=== PATIENT | female | born 1990 | race American Indian/Alaskan Native ===

== ENCOUNTER 2024-09-22 09:43 | Observation (INO) | payer MEDICAID, SELFPAY ==
[2024-09-22 09:51] VITALS: BMI 49.8
[2024-09-22 09:56] VITALS: BP 137/80; PULSE 94
[2024-09-22 10:20] VITALS: BP 137/80; PULSE 94; RESP 17; RESP 97; TEMP 36.7
== END 2024-09-22 10:57 | disposition home or self-care (01) ==
PROVIDERS: Admitting Provider Obstetrics & Gynecology; Visit Provider Obstetrics & Gynecology
DX: Z34.83 Encounter for supervision of other normal pregnancy, third trimester (principal); Z3A.33 33 weeks gestation of pregnancy
CPT/HCPCS: 59025; 59899

== ENCOUNTER 2024-10-11 09:08 | Outpatient (RCR) | payer MEDICAID, SELFPAY ==
--- NOTE | 2024-10-11 09:32 | XR_ITS ---
Examination: Biophysical profile, ultrasound Date and time of exam: October 11, 2024 0955 hours INDICATIONS: Diagnosis intrahepatic cholestasis of Technique: Multiple transabdominal sonographic images of the pelvis abdomen obtained. Attention is directed to the breathing movement, gross body movement, amniotic fluid volume and tone. Findings: Amniotic fluid index 15.1 cm Total biophysical profile is 8 of 8. breathing movement is 2. Gross body movement is 2. tone is 2. Qualitative amniotic fluid volume is 2 Impression: Biophysical profile is 8 of 8.
[2024-10-11 11:07] VITALS: BP 133/70; PULSE 99; RESP 17
== END 2024-10-11 23:59 | disposition home or self-care (01) ==
LOC: S4S1 09:08
PROVIDERS: PCP Family Medicine; Referring Provider Obstetrics & Gynecology; Visit Provider Obstetrics & Gynecology
DX: O26.643 Intrahepatic cholestasis of pregnancy, third trimester (principal); K83.1 Obstruction of bile duct; Z3A.36 36 weeks gestation of pregnancy
CPT/HCPCS: 59025; 76819

== ENCOUNTER 2024-10-18 12:48 | Observation (INO) | payer MEDICAID, SELFPAY ==
[2024-10-18 13:07] VITALS: BP 133/60; PULSE 96; RESP 18; RESP 98; TEMP 36.9; BMI 49.7
[2024-10-18 13:15] VITALS: BP 133/60; PULSE 96
[2024-10-18 14:27] LABS: Collection Type, Urine Clean Catch
[2024-10-18 14:48] LABS: Bilirubin,Urine Negative (Negative); Blood,Urine 3+ (Negative); Clarity,Urine Clear (Clear/Hazy); Color,Urine Colorless (Lt Yel-Yel); Glucose, Urine Negative (Negative); Ketones,Urine Negative (Negative); Leukocyte Esterase,Urine Negative (Negative); Nitrite,Urine Negative (Negative); Protein,Urine Trace (Neg - Trace); RBC,Urine 63 /hpf (0-3); Specific Gravity,Urine 1.006 (1.001-1.035); Squamous Epithelial Cell,Urine 1 /hpf (0-5); Urobilinogen,Urine Negative mg/dL (0.0-1.0); WBC,Urine 5 /hpf (0-5)
[2024-10-23 17:53] LABS: Chenodeoxycholic Acid* 1.2 umol/L (< OR = 3.9); Cholic Acid* 0.7 umol/L (< OR = 2.8); Deoxycholic Acid* 0.7 umol/L (< OR = 2.3)
[2024-10-25 06:37] LABS: Total Bile Acids 2.7 umol/L (< OR = 8.3)
== END 2024-10-18 15:15 | disposition home or self-care (01) ==
PROVIDERS: Admitting Provider Obstetrics & Gynecology; Visit Provider Obstetrics & Gynecology
DX: Z34.83 Encounter for supervision of other normal pregnancy, third trimester (principal); Z3A.37 37 weeks gestation of pregnancy
CPT/HCPCS: 36415; 59025; 59899; 81001; 83789

== ENCOUNTER 2024-10-28 08:31 | Outpatient (RCR) | payer MEDICAID, SELFPAY ==
--- NOTE | 2024-09-13 08:38 | XR_ITS ---
Examination: Biophysical profile, ultrasound Date and time of exam: September 13, 2024 0845 hours INDICATIONS: Cholestasis of pelvic pressure today Technique: Multiple transabdominal sonographic images of the pelvis abdomen obtained. Attention is directed to the breathing movement, gross body movement, amniotic fluid volume and tone. Findings: Amniotic fluid index 12.3 cm Total biophysical profile is 8 of 8. breathing movement is 2. Gross body movement is 2. tone is 2. Qualitative amniotic fluid volume is 2 Impression: Biophysical profile is 8 of 8.
[2024-09-13 09:30] VITALS: BP 126/63; PULSE 107; RESP 18; TEMP 36.7
--- NOTE | 2024-09-16 09:02 | XR_ITS ---
Examination: Biophysical profile, ultrasound Date and time of exam: September 16, 2024 0909 hours INDICATIONS: Diagnosis cholestasis of Technique: Multiple transabdominal sonographic images of the pelvis abdomen obtained. Attention is directed to the breathing movement, gross body movement, amniotic fluid volume and tone. Findings: Amniotic fluid index 12.1 cm Total biophysical profile is 8 of 8. breathing movement is 2. Gross body movement is 2. tone is 2. Qualitative amniotic fluid volume is 2 Impression: Biophysical profile is 8 of 8.
[2024-09-16 09:59] VITALS: BP 129/70; PULSE 98; RESP 16; TEMP 36.8
--- NOTE | 2024-09-20 09:25 | XR_ITS ---
Examination: Biophysical profile, ultrasound Date and time of exam: September 20, 2024 0945 hours INDICATIONS: Diagnosis intrahepatic cholestasis of , pelvic pressure 8 days Technique: Multiple transabdominal sonographic images of the pelvis abdomen obtained. Attention is directed to the breathing movement, gross body movement, amniotic fluid volume and tone. Findings: Amniotic fluid index 13.8 cm Total biophysical profile is 8 of 8. breathing movement is 2. Gross body movement is 2. tone is 2. Qualitative amniotic fluid volume is 2 Impression: Biophysical profile is 8 of 8.
[2024-09-20 10:44] VITALS: BP 115/55; PULSE 99; RESP 18; TEMP 36.9
--- NOTE | 2024-09-23 09:07 | XR_ITS ---
Examination: Biophysical profile, ultrasound Date and time of exam: September 23, 2024 1005 hours INDICATIONS: Diagnosis intrahepatic cholestasis of Technique: Multiple transabdominal sonographic images of the pelvis abdomen obtained. Attention is directed to the breathing movement, gross body movement, amniotic fluid volume and tone. Findings: Amniotic fluid index 12.1 cm Total biophysical profile is 8 of 8. breathing movement is 2. Gross body movement is 2. tone is 2. Qualitative amniotic fluid volume is 2 Impression: Biophysical profile is 8 of 8.
[2024-09-23 10:39] VITALS: BP 105/55; PULSE 93; RESP 18; TEMP 36.7
--- NOTE | 2024-09-27 09:11 | XR_ITS ---
Examination: Biophysical profile, ultrasound Date and time of exam: September 27, 2024 0913 hours INDICATIONS: Diagnosis cholestasis of Technique: Multiple transabdominal sonographic images of the pelvis abdomen obtained. Attention is directed to the breathing movement, gross body movement, amniotic fluid volume and tone. Findings: Amniotic fluid index 13.2 cm Total biophysical profile is 8 of 8. breathing movement is 2. Gross body movement is 2. tone is 2. Qualitative amniotic fluid volume is 2 Impression: Biophysical profile is 8 of 8.
[2024-09-27 10:18] VITALS: BP 116/58; PULSE 96; RESP 18; TEMP 37.1
--- NOTE | 2024-09-30 09:05 | XR_ITS ---
Examination: Biophysical profile, ultrasound Date and time of exam: September 30, 2024 0912 hours INDICATIONS: Diagnosis intrahepatic cholestasis of Technique: Multiple transabdominal sonographic images of the pelvis abdomen obtained. Attention is directed to the breathing movement, gross body movement, amniotic fluid volume and tone. Findings: Amniotic fluid index 16.7 cm Total biophysical profile is 8 of 8. breathing movement is 2. Gross body movement is 2. tone is 2. Qualitative amniotic fluid volume is 2 Impression: Biophysical profile is 8 of 8.
[2024-09-30 10:01] VITALS: BP 122/78; PULSE 96; RESP 16; TEMP 36.8
--- NOTE | 2024-10-04 09:06 | XR_ITS ---
Examination: Biophysical profile, ultrasound Date and time of exam: October 04, 2024 0916 hours INDICATIONS: Diagnosis intrahepatic cholestasis of Technique: Multiple transabdominal sonographic images of the pelvis abdomen obtained. Attention is directed to the breathing movement, gross body movement, amniotic fluid volume and tone. Findings: Amniotic fluid index 14.8 cm Total biophysical profile is 8 of 8. breathing movement is 2. Gross body movement is 2. tone is 2. Qualitative amniotic fluid volume is 2 Impression: Biophysical profile is 8 of 8.
--- NOTE | 2024-10-07 11:35 | XR_ITS ---
Examination: Biophysical profile, ultrasound Date and time of exam: October 07, 2024 1204 hours INDICATIONS: Diagnosis intrahepatic cholestasis of Technique: Multiple transabdominal sonographic images of the pelvis abdomen obtained. Attention is directed to the breathing movement, gross body movement, amniotic fluid volume and tone. Findings: Amniotic fluid index 14.1 cm Total biophysical profile is 8 of 8. breathing movement is 2. Gross body movement is 2. tone is 2. Qualitative amniotic fluid volume is 2 Impression: Biophysical profile is 8 of 8.
[2024-10-07 13:20] VITALS: BP 139/82; PULSE 99; RESP 18; RESP 99; TEMP 36.8
[2024-10-07 14:22] LABS: Basophils % (Auto) 0 % (0-2.5); Eosinophils # (Auto) 0.2 Thou/mm3 (0.0-0.5); Eosinophils % (Auto) 2 % (0-10); Hematocrit 29.2 % (36.0-46.0); Hemoglobin 9.1 g/dL (12.0-16.0); Immature Granulocytes % (Auto) 1 % (0-0); Immature Granulocytes Auto 0.13 Thou/mm3 (0.00-0.00); Lymphocytes % (Auto) 19 % (10-50); Mean Corpuscular HGB Conc 31.2 g/dl (31.0-37.0); Mean Corpuscular Hemoglobin 22.7 pg (25.0-35.0); Mean Corpuscular Volume 73 fL (80-100); Monocytes # (Auto) 0.7 Thou/mm3 (0.0-0.8); Monocytes % (Auto) 7 % (0-12); Neutrophils # (Auto) 7.9 Thou/mm3 (1.8-7.7); Neutrophils % (Auto) 72 % (37-80); Nucleated Red Blood Cell % 0 /100 WBC (0); Platelet Count 404 Thou/mm3 (140-440); RDW Standard Deviation 44.4 fL (36.4-46.3); Red Blood Count 4.01 Miln/mm3 (4.00-5.20); White Blood Count 10.9 Thou/mm3 (3.6-11.0)
[2024-10-07 14:33] LABS: Collection Type, Urine Clean Catch
[2024-10-07 14:42] LABS: Partial Thromboplastin Time 27.2 Seconds (22.0-36.0); Prothrombin Time 10.9 Seconds (9.0-12.2)
[2024-10-07 14:44] LABS: Bacteria,Urine Rare; Bilirubin,Urine Negative (Negative); Blood,Urine Negative (Negative); Clarity,Urine Clear (Clear/Hazy); Color,Urine Lt-Yellow (Lt Yel-Yel); Glucose, Urine Negative (Negative); Ketones,Urine Negative (Negative); Leukocyte Esterase,Urine Negative (Negative); Nitrite,Urine Negative (Negative); PH,Urine 6.5 (5.0-7.0); Protein,Urine Negative (Neg - Trace); RBC,Urine 1 /hpf (0-3); Specific Gravity,Urine 1.008 (1.001-1.035); Squamous Epithelial Cell,Urine 1 /hpf (0-5); Urobilinogen,Urine Negative mg/dL (0.0-1.0); WBC,Urine 2 /hpf (0-5)
[2024-10-07 14:57] LABS: Fibrinogen 737 mg/dL (175-375)
[2024-10-07 15:17] LABS: Alanine Aminotransferase 29 U/L (10-49); Albumin/Globulin Ratio 1.2 (1.2-2.2); Alkaline Phosphatase 134 U/L (46-116); Anion Gap 7 (7-16); Aspartate Amino Transferase 16 U/L (0-34); BUN/Creatinine Ratio 12 Ratio (12-20); Bilirubin,Total 0.3 mg/dL (0.3-1.2); Blood Urea Nitrogen 7 mg/dL (9-23); Calcium 9.6 mg/dL (8.3-10.6); Calcium (Corrected) 9.6 mg/dL (8.5-10.1); Carbon Dioxide 25.9 mMol/L (20.0-31.0); Chloride 104 mMol/L (98-107); Creatinine (Component) 0.6 mg/dL (0.6-1.3); Globulin 3.3 gm/dL (2.3-3.5); Glucose 109 mg/dL (74-106); Osmolality,Calculated 272 (275-295); Potassium 4.1 mMol/L (3.4-5.1); Sodium 137 mMol/L (136-145); Total Protein 7.3 gm/dL (5.7-8.2); eGFR > 60 See Note
[2024-10-07 15:27] LABS: LDH (Lactate Dehydrogenase) 132 U/L (120-246); Uric Acid 3.8 mg/dL (3.1-7.8)
[2024-10-07 15:50] VITALS: BP 139/82; PULSE 99; RESP 18; TEMP 36.8
--- NOTE | 2024-10-14 09:28 | XR_ITS ---
Examination: Biophysical profile, ultrasound Date and time of exam: October 14, 2024 0950 hours INDICATIONS: Diagnosis intrahepatic cholestasis of Technique: Multiple transabdominal sonographic images of the pelvis abdomen obtained. Attention is directed to the breathing movement, gross body movement, amniotic fluid volume and tone. Findings: Amniotic fluid index 13.0 cm Total biophysical profile is 8 of 8. breathing movement is 2. Gross body movement is 2. tone is 2. Qualitative amniotic fluid volume is 2 Impression: Biophysical profile is 8 of 8.
[2024-10-14 10:18] VITALS: BP 128/64; PULSE 99; RESP 18; TEMP 36.7
--- NOTE | 2024-10-18 09:09 | XR_ITS ---
Examination: Biophysical profile, ultrasound Date and time of exam: October 18, 2024 0912 hours INDICATIONS: Diagnosis intrahepatic cholecystosis of Technique: Multiple transabdominal sonographic images of the pelvis abdomen obtained. Attention is directed to the breathing movement, gross body movement, amniotic fluid volume and tone. Findings: Amniotic fluid index 9.5 cm Total biophysical profile is 8 of 8. breathing movement is 2. Gross body movement is 2. tone is 2. Qualitative amniotic fluid volume is 2 Impression: Biophysical profile is 8 of 8.
[2024-10-18 09:43] VITALS: BP 129/74; PULSE 101; RESP 16; TEMP 36.9
--- NOTE | 2024-10-21 09:09 | XR_ITS ---
Examination: Biophysical profile, ultrasound Date and time of exam: October 21, 2024 at 0956 hours INDICATIONS: Diagnosis intrahepatic cholestasis of Technique: Multiple transabdominal sonographic images of the pelvis abdomen obtained. Attention is directed to the breathing movement, gross body movement, amniotic fluid volume and tone. Findings: Amniotic fluid index 12.6 cm Total biophysical profile is 8 of 8. breathing movement is 2. Gross body movement is 2. tone is 2. Qualitative amniotic fluid volume is 2 Impression: Biophysical profile is 8 of 8.
[2024-10-21 11:00] VITALS: BP 137/64; PULSE 92; RESP 16; TEMP 36.8
--- NOTE | 2024-10-25 08:41 | XR_ITS ---
Examination: Biophysical profile, ultrasound Date and time of exam: October 25, 2024 0851 hours INDICATIONS: Diagnosis cholestasis of Technique: Multiple transabdominal sonographic images of the pelvis abdomen obtained. Attention is directed to the breathing movement, gross body movement, amniotic fluid volume and tone. Findings: Amniotic fluid index 11.1 cm Total biophysical profile is 8 of 8. breathing movement is 2. Gross body movement is 2. tone is 2. Qualitative amniotic fluid volume is 2 Impression: Biophysical profile is 8 of 8.
[2024-10-25 09:36] VITALS: BP 136/66; PULSE 82; RESP 16; TEMP 36.8
--- NOTE | 2024-10-28 08:40 | XR_ITS ---
Examination: Biophysical profile, ultrasound Date and time of exam: October 28, 2024 0859 hours INDICATIONS: Diagnosis cholestasis of Technique: Multiple transabdominal sonographic images of the pelvis abdomen obtained. Attention is directed to the breathing movement, gross body movement, amniotic fluid volume and tone. Findings: Amniotic fluid index 8.9 cm Total biophysical profile is 8 of 8. breathing movement is 2. Gross body movement is 2. tone is 2. Qualitative amniotic fluid volume is 2 Impression: Biophysical profile is 8 of 8.
[2024-10-28 10:00] VITALS: BP 132/66; PULSE 86; RESP 16; TEMP 36.8
== END 2024-10-28 23:59 | disposition home or self-care (01) ==
LOC: S4S1 08:31
PROVIDERS: Student in an Organized Health Care Education/Training Program; PCP Nurse Practitioner Family; Referring Provider Obstetrics & Gynecology; Visit Provider Obstetrics & Gynecology
DX: O26.643 Intrahepatic cholestasis of pregnancy, third trimester (principal); K83.1 Obstruction of bile duct; O26.893 Other specified pregnancy related conditions, third trimester; R03.0 Elevated blood-pressure reading, without diagnosis of hypertension; Z3A.38 38 weeks gestation of pregnancy
CPT/HCPCS: 36415; 59025; 76819; 80053; 81001; 83615; 84550; 85025; 85384; 85610; 85730

== ENCOUNTER 2024-10-29 05:47 | Inpatient (IN) | payer MEDICAID, SELFPAY ==
[2024-10-29] VITALS (17 sets, daily range): BP systolic 97–138; BP diastolic 58–83; PULSE 74–98; RESP 12–26; TEMP 36.7–37; O2SAT 94–100; BMI 49.5
[2024-10-29 06:59] LABS: Basophils % (Auto) 0 % (0-2.5); Eosinophils % (Auto) 0 % (0-10); Hematocrit 32.5 % (36.0-46.0); Hemoglobin 10.1 g/dL (12.0-16.0); Immature Granulocytes % (Auto) 1 % (0-0); Immature Granulocytes Auto 0.19 Thou/mm3 (0.00-0.00); Lymphocytes # (Auto) 1.2 Thou/mm3 (1.0-4.8); Lymphocytes % (Auto) 7 % (10-50); Mean Corpuscular HGB Conc 31.1 g/dl (31.0-37.0); Mean Corpuscular Volume 71 fL (80-100); Monocytes # (Auto) 0.3 Thou/mm3 (0.0-0.8); Monocytes % (Auto) 2 % (0-12); Neutrophils # (Auto) 15.3 Thou/mm3 (1.8-7.7); Neutrophils % (Auto) 90 % (37-80); Nucleated Red Blood Cell % 0 /100 WBC (0); Platelet Count 468 Thou/mm3 (140-440); RDW Standard Deviation 43.5 fL (36.4-46.3); White Blood Count 17.1 Thou/mm3 (3.6-11.0)
[2024-10-29] MEDS: RINGERS LACTATED 1000 ML 1,000 ML 100 ML IV ×2 (07:22→07:32)
[2024-10-29 07:33] LABS: Syphilis Nonreactive (Nonreactive)
[2024-10-29] MEDS: ceFAZolin/D5W 2 GM IV 2 GM/100 ML BAG IV (07:33)
[2024-10-29] MEDS: FAMOTIDINE INJ 10 MG/ML VIAL 2 ML 20 MG IV (07:33)
[2024-10-29] MEDS: CITRIC ACID/SODIUM CITR 15 ML UDC (BICITRA) 30 ML PO (07:38)
--- NOTE | 2024-10-29 07:44 | PD.LDHP ---
Documentation for date of: 10/29/24 OB Labor/Induct. HPI History of Present Illness : 2 Term pregnancies: 1 pregnancies: 0 Living children: 1 History of Abortions: Spontaneous and Elective: 0 History of sections: Yes History of : No History of present illness: 4-year-old 2 para 1-0-0-1 at 38 weeks and 3 days admitted for repeat low-transverse r secondary to cholestasis of . Patient had previous x 1. Has been on ursodiol for the last 2 months repeat bile acids has been low at 8.4. Patient still has itching History of Present Dating criteria: LMP confirmed by 2nd trimester US Adequate Care: Yes Labs Labs: Negative: HIV and Group Beta Strep Past Medical History Surgical History SURGICAL: Positive Section Meds Home Medications and Allergies Home Medications ?Medication ?Instructions ?Recorded ?Confirmed ?Type vit no.95-ferrous 1 tab PO QDAY 08/06/20 10/29/24 History fumarate 28 mg-folic acid 800 mcg tablet () cetirizine 10 mg tablet 10 mg PO PRN PRN ALLERGIES SEASONAL 09/16/24 10/29/24 History epinephrine 0.3 mg/0.3 mL 1 mg subcut PRN PRN Allergic 09/16/24 10/29/24 History injection, auto-injector Reaction folic acid 1 mg tablet 1 mg PO QDAY 09/16/24 10/29/24 History ursodiol 300 mg capsule 300 mg PO TID 09/16/24 10/29/24 History aspirin 81 mg tablet,delayed mg 10/29/24 History release Allergies Allergy/AdvReac Type Severity Reaction Status Date / Time gluten Allergy Severe Anaphylaxis Verified 10/29/24 06:34 Grass Allergy Intermediate Hives Uncoded 10/29/24 06:34 Dust Allergy Unknown HIVES Uncoded 10/29/24 06:34 OB Exam Constitutional Constitutional: no acute distress Routine HEENT Exam Head: Present normocephalic and atraumatic Eye: Present EOMI and PERRL ENT: Present mucous membranes moist Routine Neck Exam Neck: Present supple and trachea midline Routine Cardiovascular Exam Cardiovascular: Present RRR Routine Abdominal Exam Abdominal: Present soft and normoactive bowel sounds Detailed Labor and Delivery Exam Dilation (cm): Closed Comments: Category 1 heart tone Not in labor Routine Extremities Exam Extremities: Present full ROM Routine Skin Exam Skin: Present intact, dry and warm Routine Neurological Exam Neurological: Present alert, oriented X3 and CN II-XII intact Routine Psychiatric Exam Psychiatric: Present normal affect and normal thought process OB Results Labs 10/29/24 06:15 Labs: Short CBC 10/29/24 Range/Units 06:15 WBC 17.1 H (3.6-11.0) Thou/mm3 Hgb 10.1 L (12.0-16.0) g/dL Hct 32.5 L (36.0-46.0) % Plt Count 468 H D (140-440) Thou/mm3 Impressions Impression: 34-year-old 2 para 1-0-0-1 at 3 8 weeks and 3 days admitted for repeat low-transverse for cholestasis of Hemoglobin 10.1 GTT within normal limits Anatomy within normal limit Patient had signed consent for sterilization but it is not 30 days from the day of the consent patient was counseled that per law it is required to wait for 30 days, cannot do sterilization during LARC counseling done OB Assessment & Plan Additional Plan Additional Plan Comment: Repeat low-transverse Antibiotic prophylaxis DVT prophy
--- NOTE | 2024-10-29 09:35 | OBDSUM_ITS ---
Data (Whitney) Data Hx Section: Yes : 2 Para: 1 Term: 1 : 0 : 0 Delivery Data (Whitney) Labor Data ROM Date: 10/29/24 ROM Time: 08:10 Rupture Type: AROM Amniotic Fluid: Clear Delivery Data Labor Onset Stage 1 Date: 10/29/24 Labor Onset Stage 1 Time: 08:10 Labor Onset Stage 2 Date: 10/29/24 Labor Onset Stage 2 Time: 08:10 Delivery Date: 10/29/24 Delivery Time: 08:12 Gestational age (weeks): 38 Gestational age (days): 3 Placenta Delivery Date: 10/29/24 Placenta Delivery Time: 08:12 Delivered by: Brian Villarreal Delivery nurse: Nena Cohen Other staff at delivery: Nursery Nurse Other staff at delivery: Tiffani Cormier Delivery Method Delivery: Delivery Type: Repeat Anesthesia Type Primary Anesthesia: Spinal EBL Estimated blood loss (ml): 500 Data ([facility]) [place] Data Infant Gender: Female Infant Weight Grams: 3695 1 Minute Total: 8 5 Minute Total: 9
--- NOTE | 2024-10-29 09:40 | PD.GYNPROC ---
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 Identity was confirmed by double identifiers and she was placed on the operating table.The abdomen and perineum were prepped in the usual sterile fashion and a Ortiz catheter was placed to continuous drainage.? Sterile drapes were applied.??A Pfannenstiel skin incision was made with a scalpel and carried to the subcutaneous fat up to the rectus fascia.? The rectus fascia was incised on either side of the midline and the incisions were extended bilaterally.? The fascia was gently dissected off the ventral surface of the rectus muscle both superiorly and inferiorly. Carefully a peritioneal window craeted hysterotomy incision made and extended bluntly with finger. Rupture of membranes revealed clear fluid. The baby was found in cephalic position delivered via vertex. The umbilical cord , was doubly clamped, divided and the was handed over to the waiting team.? placenta delivered by controlled cord traction . The interior of the uterus was now thorougly cleaned of all blood and debris and membranes.? 2 cavities and the uterus verified the? hysterotomy was closed using 0 vicryl suture in double layers. Once the repair was completed the hysterotomy was inspected, was noted to be adequately hemostatic . Muscle oozing stopped by bovie. The rectus fascia was repaired using Vicry 0 in a running fashion.? The subcutaneous layer was now, approximated with 3-0 vicryl in double layers.? All bleeding points were cauterized using the Bovie.?The skin was closed using 4-0 Monocryl in a subcuticular fashion.? The skin was cleaned and a sterile dressing was applied. The patient was now undraped, the abdomen and back were thoroughly cleaned and she was now transferred to the recovery room in a stable Estimated blood loss (ml): 500 Surgical staff Operation Date: 10/29/24 07:45 <No data on this case meets the specified criteria> Diagnosis Problem List Completed Was Problem List Reviewed/Reconciled?: Yes
[2024-10-29 13:57] LABS: Basophils % (Auto) 0 % (0-2.5); Eosinophils % (Auto) 0 % (0-10); Hematocrit 27.8 % (36.0-46.0); Immature Granulocytes % (Auto) 1 % (0-0); Immature Granulocytes Auto 0.14 Thou/mm3 (0.00-0.00); Lymphocytes # (Auto) 1.9 Thou/mm3 (1.0-4.8); Lymphocytes % (Auto) 9 % (10-50); Mean Corpuscular HGB Conc 31.3 g/dl (31.0-37.0); Mean Corpuscular Hemoglobin 22.4 pg (25.0-35.0); Mean Corpuscular Volume 72 fL (80-100); Monocytes # (Auto) 1.1 Thou/mm3 (0.0-0.8); Monocytes % (Auto) 5 % (0-12); Neutrophils # (Auto) 18.3 Thou/mm3 (1.8-7.7); Neutrophils % (Auto) 85 % (37-80); Nucleated Red Blood Cell % 0 /100 WBC (0); Platelet Count 379 Thou/mm3 (140-440); RDW Standard Deviation 44.1 fL (36.4-46.3); Red Blood Count 3.88 Miln/mm3 (4.00-5.20); White Blood Count 21.5 Thou/mm3 (3.6-11.0)
[2024-10-29 14:02] LABS: Hemoglobin 8.7 g/dL (12.0-16.0)
[2024-10-29] MEDS: OXYTOCIN in NS 20 units 20 UNIT/1,000 ML BAG 125 UNIT IV (16:46)
[2024-10-29] MEDS: ACETAMINOPHEN IVPB 1,000 MG/100 ML VIAL 250 MG IV (21:19)
--- NOTE | 2024-10-29 21:45 | PC.NURSE ---
[address] Villarreal to let her know pts pre and post lab draw, current vital signs, and let her know the pts folljudie catherter was removed. Dr Villarreal verbalized understanding of information and did not give any new orders at this time.
[2024-10-29 21:58] LABS: Amphetamine/Metham Scrn,Ur OB Negative (Negative); Benzoylecgonine Screen, Ur OB Negative (Negative); Opiate Screen,Urine OB Negative (Negative); THC Screen,Urine OB Negative (Negative)
--- NOTE | 2024-10-29 22:34 | ESPR_ITS ---
Subjective Subjective Interval history: Patinet seen atthe bedside doing well. Denied any fever nausea vomitting . Has not passed gas yet , feels bloated. No vaginal clots , has some watery bleeding. Exam Vital Signs Temp Pulse Resp BP Pulse Ox O2 Del Method 98.6 F 98 17 126/72 97 Room Air 10/29/24 16:00 10/29/24 16:00 10/29/24 16:00 10/29/24 16:00 10/29/24 16:00 10/29/24 16:00 Constitutional Constitutional: no acute distress Routine HEENT Exam Head: Present normocephalic and atraumatic Eye: Present EOMI and PERRL ENT: Present mucous membranes moist Routine Neck Exam Neck: Present supple and trachea midline Routine Respiratory Exam Respiratory: Present chest non-tender, lungs clear, normal breath sounds and no resp distress Routine Cardiovascular Exam Cardiovascular: Present RRR Routine Abdominal Exam Abdominal: Present soft and normoactive bowel sounds Routine Extremities Exam Extremities: Present full ROM Routine Skin Exam Skin: Present intact, dry and warm Routine Neurological Exam Neurological: Present alert, oriented X3 and CN II-XII intact Routine Psychiatric Exam Psychiatric: Present normal affect and normal thought process Objective Labs 10/29/24 13:40 Labs: Laboratory Results - last 24 hr 10/29/24 10/29/24 10/29/24 06:15 13:40 21:10 WBC 17.1 H 21.5 H RBC 4.60 3.88 L Hgb 10.1 L 8.7 L Hct 32.5 L 27.8 L MCV 71 L 72 L MCH 22.0 L 22.4 L MCHC 31.1 31.3 RDW Std Deviation 43.5 44.1 Plt Count 468 H D 379 D Neut % (Auto) 90 H 85 H Lymph % (Auto) 7 L 9 L [place] % (Auto) 2 5 Eos % (Auto) 0 0 Baso % (Auto) 0 0 Neut # (Auto) 15.3 H 18.3 H Lymph # (Auto) 1.2 1.9 [place] # (Auto) 0.3 1.1 H Eos # (Auto) 0.0 0.0 Baso # (Auto) 0.0 0.0 Immature Gran # (Auto) 0.19 H 0.14 H Absolute Nucleated RBC 0.00 0.00 Immature Gran % 1 H 1 H Nucleated RBC % 0 0 Urine Opiates Screen Negative U Amphetamin/Meth Scrn Negative U Cocaine Metab Screen Negative U Marijuana (THC) Screen Negative Syphilis Serology Nonreactive Blood Type O Positive Antibody Screen NEGATIVE Blood Bank Wristband ID Yes Assessment & Plan Assessment Comment Assessment comment: 34 y/o s/p RLTCS, POD#1 Hb appropriate drop , current 8.7( 10.1 preop) VSS meeting adequate milestones Plan Comment Plan Comment: continue PO care anticipate discharge tomorrow Time Spent With Patient Time: Total time spent is greater than 50% in coordination of care (as documented) at patient's floor/unit and/or counseling patient:
[2024-10-30 00:50] VITALS: BP 108/70; PULSE 91; RESP 22; TEMP 36.5; O2SAT 96
[2024-10-30] MEDS: ACETAMINOPHEN IVPB 1,000 MG/100 ML VIAL 250 MG IV (02:45)
[2024-10-30] MEDS: SODIUM CHLORIDE 0.9% 1000 ML 1,000 ML 100 ML IV (02:46)
[2024-10-30 05:08] VITALS: BP 117/75; PULSE 92; RESP 20; TEMP 36.7; O2SAT 96
[2024-10-30 08:00] VITALS: BP 123/75; PULSE 98; RESP 18; TEMP 36.7; O2SAT 96
[2024-10-30] MEDS: FOLIC ACID 1 MG TABLET PO (08:12)
[2024-10-30] MEDS: KETOROLAC INJ 30 MG/ML VIAL IVP (10:47)
--- NOTE | 2024-10-30 11:02 | PD.LDDS ---
DS: Providers Provider Date of admission: 10/29/24 05:47 Primary care physician: Physician No Primary/Family Admitting Provider: Brian Villarreal MD Attending Provider on Admission: Brian Villarreal MD Consults: 10/29/24 09:16 Referral Routine Comment: Attending Provider on DC: Brian Villarreal MD Discharging Provider: Brian Villarreal MD DS: Diagnosis Problem List Completed Was Problem List Reviewed/Reconciled?: Yes Summary/Hosp Course Brief History: 4-year-old 2 para 2, s/p repeat low-transverse postop day 2 at 38 weeks and 3 days. Patient has been doing well denies any fever, nausea vomiting. Patient has been tolerating oral diet, ambulating, passing gas Peripartum Data Procedures: Procedures Operation Date: 10/29/24 07:45 Actual Procedure Side Surgeon p in OB Brian Villarreal MD Status at Discharge Cognitive/behavioral status at discharge: Stable Time Spent with Patient Time attestation: Total time spent providing and/or coordinating discharge services: Exam Vital Signs Temp Pulse Resp BP Pulse Ox O2 Del Method 98.0 F 92 20 117/75 96 Room Air 10/30/24 05:08 10/30/24 05:08 10/30/24 05:08 10/30/24 05:08 10/30/24 05:08 10/30/24 05:08 Constitutional Constitutional: no acute distress Routine HEENT Exam Head: Present normocephalic and atraumatic Eye: Present EOMI and PERRL ENT: Present mucous membranes moist Routine Neck Exam Neck: Present supple and trachea midline Routine Respiratory Exam Respiratory: Present chest non-tender, lungs clear, normal breath sounds and no resp distress Routine Cardiovascular Exam Cardiovascular: Present RRR Routine Abdominal Exam Abdominal: Present soft and normoactive bowel sounds Routine Extremities Exam Extremities: Present full ROM Routine Skin Exam Skin: Present intact, dry and warm Routine Neurological Exam Neurological: Present alert, oriented X3 and CN II-XII intact Routine Psychiatric Exam Psychiatric: Present normal affect and normal thought process Discharge Plan Plan Patient Disposition: HOME (Self Care) Prescriptions/Referrals Prescriptions/Med Rec: New acetaminophen-codeine 300-30 mg tablet 1 tab PO BID PRN (Reason: pain) Qty: 20 0RF ibuprofen 800 mg tablet 800 mg PO Q8H PRN (Reason: pain) Qty: 20 0RF ferrous sulfate [Feosol] 325 mg (65 mg iron) tablet 325 mg PO TID Qty: 60 3RF No Action PNV cmb#95-ferrous fumarate-FA [] 28 mg iron- 800 mcg Tablet 1 tab PO QDAY cetirizine 10 mg tablet 10 mg PO PRN PRN (Reason: ALLERGIES SEASONAL) Patient Comments: TAKE 1 TABLET BY MOUTH EVERY DAY NEEDED folic acid 1 mg tablet 1 mg PO QDAY Patient Comments: TAKE 1 TABLET BY MOUTH EVERY DAY epinephrine 0.3 mg/0.3 mL auto-injector 1 mg SUBCUT PRN PRN (Reason: Allergic Reaction) Patient Comments: INJECT 1 PEN INTRAMUSCULARLY ONCE NEEDED FOR ANAPHYLAXIS ursodiol 300 mg Capsule 300 mg PO TID aspirin 81 mg tablet,delayed release (DR/EC) Patient Comments: TAKE 1 TABLET BY MOUTH EVERY DAY Referrals: No Primary/Family,Physician [Primary Care Provider] - Patient/Caregiver Discharge Instructions Education Materials: C Section Dc Print Language: Upper Sorbian Stand Alone Forms: Felicia Award Info., Patient Portal Info Letter Discharge Order Discharge Orders: Discharge (Routine); Ordered 10/30/24 Ordered By: Brian Villarreal Planned Discharge Date 10/30/24
[2024-10-30 15:10] VITALS: BP 103/64; PULSE 95; RESP 18; TEMP 37; O2SAT 95
--- NOTE | 2024-10-30 15:19 | PC.CC ---
Ebonie Payne is a 34-year-old female admitted for labor and delivery care. Rn Postpartum made contact with Pt at bedside to complete ob assessment and discuss discharge disposition. Role and reason for the contact was explained to Pt. Demographic information was verified. Pt identified life verona Lui as surrogate decision maker. Pt is independent with all ADLs, no source of DME. PCP is [facility] . At time of discharge patient will return home, FOB will provide transportation. Rn Postpartum reviewed MH with Pt and Pt reported she is currently connected to connected to and attend sessions every other Friday. Discharge Plan: Home Next of Kin: Shahnaz Lui PCP: [facility] CN
[2024-10-30] MEDS: Milk Of Magnesia Susp 30 ML UDC PO (18:37)
[2024-10-30] MEDS: IBUPROFEN TAB 400 MG TABLET 800 MG PO (18:37)
[2024-10-30 20:00] VITALS: BP 107/70; PULSE 100; RESP 18; TEMP 36.7; O2SAT 96
[2024-10-31] MEDS: HYDROcodone/APAP 5/325 TABLET 2 TAB PO (04:02)
[2024-10-31 04:45] VITALS: BP 121/76; PULSE 90; RESP 16; TEMP 36.7; O2SAT 97
[2024-10-31 08:00] VITALS: BP 133/68; PULSE 99; RESP 18; TEMP 36.9; O2SAT 97
[2024-10-31] MEDS: FOLIC ACID 1 MG TABLET PO (09:19)
[2024-10-31] MEDS: HYDROcodone/APAP 5/325 TABLET 1 TAB PO (11:45)
[2024-10-31] MEDS: DIPHTH,PERTUSS(ACELL),TET VAC 0.5 ML SYR IMi (11:46)
--- NOTE | 2024-10-31 14:14 | PD.LDDS ---
DS: Providers Provider Date of admission: 10/29/24 05:47 Primary care physician: Physician No Primary/Family Admitting Provider: Brian Villarreal MD Attending Provider on Admission: Brian Villarreal MD Consults: 10/29/24 09:16 Referral Routine Comment: Attending Provider on DC: Brian Villarreal MD Discharging Provider: Brian Villarreal MD DS: Diagnosis Problem List Completed Was Problem List Reviewed/Reconciled?: Yes Summary/Hosp Course Brief History: 4-year-old 2 para 2, s/p repeat low-transverse postop day 2 at 38 weeks and 3 days. Patient has been doing well denies any fever, nausea vomiting. Patient has been tolerating oral diet, ambulating, passing gas Peripartum Data Procedures: Procedures Operation Date: 10/29/24 07:45 Actual Procedure Side Surgeon p in OB Brian Villarreal MD Status at Discharge Cognitive/behavioral status at discharge: stable Time Spent with Patient Time attestation: Total time spent providing and/or coordinating discharge services: Exam Vital Signs Temp Pulse Resp BP Pulse Ox O2 Del Method 98.4 F 99 18 133/68 H 97 Room Air 10/31/24 08:00 10/31/24 08:00 10/31/24 08:00 10/31/24 08:00 10/31/24 08:00 10/31/24 08:00 Discharge Plan Plan Patient Disposition: HOME (Self Care) Prescriptions/Referrals Prescriptions/Med Rec: New acetaminophen-codeine 300-30 mg tablet 1 tab PO BID PRN (Reason: pain) Qty: 20 0RF ibuprofen 800 mg tablet 800 mg PO Q8H PRN (Reason: pain) Qty: 20 0RF ferrous sulfate [Feosol] 325 mg (65 mg iron) tablet 325 mg PO TID Qty: 60 3RF No Action PNV cmb#95-ferrous fumarate-FA [] 28 mg iron- 800 mcg Tablet 1 tab PO QDAY cetirizine 10 mg tablet 10 mg PO PRN PRN (Reason: ALLERGIES SEASONAL) Patient Comments: TAKE 1 TABLET BY MOUTH EVERY DAY NEEDED folic acid 1 mg tablet 1 mg PO QDAY Patient Comments: TAKE 1 TABLET BY MOUTH EVERY DAY epinephrine 0.3 mg/0.3 mL auto-injector 1 mg SUBCUT PRN PRN (Reason: Allergic Reaction) Patient Comments: INJECT 1 PEN INTRAMUSCULARLY ONCE NEEDED FOR ANAPHYLAXIS ursodiol 300 mg Capsule 300 mg PO TID aspirin 81 mg tablet,delayed release (DR/EC) Patient Comments: TAKE 1 TABLET BY MOUTH EVERY DAY Referrals: No Primary/Family,Physician [Primary Care Provider] - Patient/Caregiver Discharge Instructions Education Materials: : Caring for Yourself, C Section Dc Print Language: Luxembourgish Activity Restrictions/Additional Instructions: follow up in one week for incision care. Stand Alone Forms: Felicia Award Info., Patient Portal Info Letter Vaccines Vaccines Given During Stay: TDaP Discharge Order Discharge Orders: Discharge (Routine); Ordered 10/31/24 Ordered By: Brian Villarreal Planned Discharge Date 10/31/24
== END 2024-10-31 12:25 | disposition home or self-care (01) | DRG 540 ==
LOC: S4SX 07:04 → S4NX 08:02
PROVIDERS: Admitting Provider Student in an Organized Health Care Education/Training Program; Visit Provider Student in an Organized Health Care Education/Training Program
PROC: 10D00Z1 Extraction of Products of Conception, Low, Open Approach (ICD-10-PCS; CPT 59514; principal; 2024-10-29 07:30)
DX: O34.211 Maternal care for low transverse scar from previous cesarean delivery (principal); O26.643 Intrahepatic cholestasis of pregnancy, third trimester; E78.79 Other disorders of bile acid and cholesterol metabolism; K76.89 Other specified diseases of liver; Z37.0 Single live birth; Z3A.38 38 weeks gestation of pregnancy; Z23 Encounter for immunization
CPT/HCPCS: 36415; 80307; 85025; 86780; 86850; 86900; 86901; 90715; 94762; J0131; J0689; J1100; J1885; J2274; J2371; J2405; J2590; J3010; J3490; J7030; J7120; A9270; J2270

== ENCOUNTER → 2025-06-23 | Outpatient (CLI) | payer MEDICAID, SELFPAY ==
--- NOTE | 2025-06-23 10:10 | XR_ITS ---
Examination: Thyroid sonography complete TECHNIQUE: Grayscale sonographic images thyroid lobes Date and time: June 23, 2025, 1054 hours INDICATIONS: Abnormal thyroid function tests on laboratory examination last month. FINDINGS: Right thyroid 4.2 cm Upper pole nodule 5 x 4 mm, 7 x 4 mm Left thyroid 4.4 cm Upper pole nodule 10 x 9 mm, lower pole nodule 9 x 6 mm IMPRESSION: Small thyroid nodules as above
== END | disposition home or self-care (01) ==
PROVIDERS: PCP Nurse Practitioner Family; Referring Provider Nurse Practitioner Family; Visit Provider Nurse Practitioner Family
DX: E04.2 Nontoxic multinodular goiter (principal)
CPT/HCPCS: 76536

== ENCOUNTER → 2025-08-17 | Outpatient (CLI) | payer MEDICAID, SELFPAY ==
--- NOTE | 2025-08-17 11:00 | XR_ITS ---
Examination: Transvaginal ultrasound of the pelvis, complete Technique: Transvaginal sonographic images pelvis performed using alfredo scale imaging Exam date and time: August 17, 2025, 1106 hours INDICATIONS: Painful intercourse months. FINDINGS: Uterus 10.1 cm no uterine mass or intrauterine gestation Endometrial stripe 1.3 cm Right ovary 4.0 cm arterial flow 14 mm follicular cyst Left ovary obscured by bowel gas IMPRESSION: No uterine mass or intrauterine gestation
== END | disposition home or self-care (01) ==
LOC: CDIM 10:39
PROVIDERS: PCP Nurse Practitioner Family; Referring Provider Nurse Practitioner Family; Visit Provider Nurse Practitioner Family
DX: N94.10 Unspecified dyspareunia (principal)
CPT/HCPCS: 76830

== ENCOUNTER 2025-09-17 19:06 | Emergency (ER) | payer MEDICAID, SELFPAY ==
[2025-09-17 19:10] VITALS: BMI 48.6
[2025-09-17 19:54] VITALS: BP 162/96; PULSE 87; RESP 20; TEMP 36.9; O2SAT 95
--- NOTE | 2025-09-17 20:00 | XR_ITS ---
EXAMINATION: PA chest single view TECHNIQUE: Upright PA chest single view Date and time: September 17, 20252007 hours INDICATIONS: Cough and shortness of breath today. FINDINGS: Normal heart size Breast density overlies the lower lung zones No pneumonia or pulmonary edema IMPRESSION: No pneumonia or pulmonary edema
[2025-09-17] MEDS: ALBUTEROL/IPRATROPIUM (Duoneb) RT SOL 3 ML NEBU INH (20:59)
[2025-09-17 21:01] VITALS: PULSE 88; RESP 18; O2SAT 100
--- NOTE | 2025-09-17 21:01 | PD.EDADULT ---
ED General RME/HPI General Chief complaint: General Adult/Misc Complain Stated complaint: CHEST AREA PAIN WHEN BREATHING, BACK PAIN Time Seen by Provider: 09/17/25 19:57 Source: patient Arrival date/time: 09/17/25 19:06 Mode of arrival: ambulatory Limitations: no limitations RME / HPI RME / HPI narrative: This patient is a pleasant but morbidly obese 35-year-old female who arrives to the ED today for evaluation of continued cough and chest congestion concerns for nearly 10 days. Patient states she was seen at another facility approximately a week ago and diagnosed with pneumonia. Patient states she completed a course of Levaquin, but states that her symptoms remain. Patient complains of continued cough and chest congestion. Patient was hypertensive at arrival. Related Data Home Medications ?Medication ?Instructions ?Recorded ?Confirmed vit no.95-ferrous 1 tab PO QDAY 08/06/20 10/29/24 fumarate 28 mg-folic acid 800 mcg tablet () cetirizine 10 mg tablet 10 mg PO PRN PRN ALLERGIES SEASONAL 09/16/24 10/29/24 epinephrine 0.3 mg/0.3 mL 1 mg subcut PRN PRN Allergic 09/16/24 10/29/24 injection, auto-injector Reaction folic acid 1 mg tablet 1 mg PO QDAY 09/16/24 10/29/24 ursodiol 300 mg capsule 300 mg PO TID 09/16/24 10/29/24 aspirin 81 mg tablet,delayed mg 10/29/24 release Previous Rx's ?Medication ?Instructions ?Recorded acetaminophen 300 mg-codeine 30 mg 1 tab PO BID PRN pain #20 tabs 10/30/24 tablet ferrous sulfate 325 mg (65 mg 325 mg PO TID #60 tabs 10/30/24 iron) tablet (Feosol) ibuprofen 800 mg tablet 800 mg PO Q8H PRN pain #20 tabs 10/30/24 benzonatate 100 mg capsule 100 mg PO TID PRN cough #20 caps 09/17/25 Allergies Allergy/AdvReac Type Severity Reaction Status Date / Time gluten Allergy Severe Anaphylaxis Verified 10/29/24 06:34 Grass Allergy Intermediate Hives Uncoded 10/29/24 06:34 Dust Allergy Unknown HIVES Uncoded 10/29/24 06:34 Review of Systems Review of Systems Systems Reviewed: All systems reviewed, normal except as documented Past Medical History Past Medical History NEUROLOGIC: Negative Neurological Disorders, Cerebrovascular Accident, Transient Ischemic Attacks (TIA), Dementia, Alzheimer's Disease, Parkinson's Disease, Brain Tumor, Meningitis, Seizures, Epilepsy, Multiple Sclerosis, Cerebral Palsy, Amyotrophic Lateral Sclerosis (ALS/Doreen Gehrig's), Guillain-Sargent Syndrome, Spina Bifida, Paralysis, Peripheral Neuropathy, Mckeon's Palsy, Subdural Hematoma, Migraine, Head Trauma, Spinal Cord Injury or Traumatic Brain Injury CARDIAC: Positive Edema and Hypertension; Negative Cardiac Disorders, Myocardial Infarction, Cardiac Arrhythmia, Atrial Fibrillation, Angina, Heart Murmur, Coronary Artery Disease, Atherosclerotic Heart Disease, Peripheral Vascular Disease, Hypercholesterolemia, Aneurysm, Congestive Heart Failure, Congenital Heart Disease, Valvular Heart Disease, Rheumatic Fever, Cardiomyopathy, Pericarditis, Cellulitis, Deep Vein Thrombosis, Hypotension or Varicose Veins RESPIRATORY: Negative Chronic Obstructive Pulmonary Disease (COPD), Asthma, Bronchitis, Emphysema, Pneumonia, Pulmonary Fibrosis, Cystic Fibrosis, Tuberculosis, Pulmonary Embolism, Pulmonary Edema or Sleep Apnea GASTROINTESTINAL: Positive Gall Bladder Disease and Obesity; Negative Gastrointestinal Disorders, Hepatitis, Cirrhosis, Pancreatitis, Celiac Disease, Gastrointestinal Bleed, Esophageal Varices, Parra's Esophagus, Colitis, Ulcerative Colitis, Diverticulitis, Diverticulosis, Ulcer, Colorectal Cancer, Irritable Bowel, Crohn's Disease, Obstructive Bowel, Hiatal Hernia, Hemorrhoids or Gastroesophageal Reflux Disease GENITOURINARY: Negative Genitourinary Disorders, Renal Disease, Kidney Stones, Polycystic Kidney Disease, Neurogenic Bladder, Inguinal Hernia, Dialysis, Prostate Cancer or Benign Prostatic Hyperplasia REPRODUCTIVE: Negative Breast Cancer, Endometriosis, Genital Herpes, Gonorrhea, Pelvic Inflammatory Disease, Previous Pregnancies, Syphilis, Testicular Cancer or Uterine Prolapse MUSCULOSKELETAL: Negative Musculoskeletal Disorders, Muscular Dystrophy, Myasthenia Gravis, Marfan's Syndrome, Bone Cancer, Arthritis, Rheumatoid Arthritis, Osteoporosis, Degenerative Disk Disease, Gout, Scoliosis, Carpal Tunnel Syndrome, Fibromyalgia, Fractures, Degenerative Joint Disease, Osteomyelitis or Poliovirus ENT: Negative Cataracts, Glaucoma, Blind, Retinal Detachment, Macular Degeneration, Ear Infection, Deafness, Head Trauma or Eye Prosthesis ENDOCRINE: Negative Endocrine Disorders, Diabetes Mellitus Type 1, Diabetes Mellitus Type 2, Hypoglycemia, Anand's Syndrome, [place]'s Disease, Hyperthyroidism, Hypothyroidism, Parathyroid Disease, Pituitary Disease, Systemic Lupus Erythematosus, Syndrome of Inappropriate Antidiuretic Hormone (SIADH), Adrenal Disease or Graves' Disease HEMATOLOGIC: Positive Blood Disorders and Anemia; Negative Leukemia, Hemophilia, Thalassemia, Sickle Cell Disease or Clotting Problems PSYCHO/SOCIAL: Positive Recreational Drug Use (THC), Depression, Anxiety and Depression (no meds for it); Negative Psychiatric Problems, Bipolar Disorder, Behavior Problems, Self-Mutilation, Attention Deficit Disorder, Attention Deficit Hyperactivity Disorder, Post Traumatic Stress Disorder or Eating Disorder OTHER HISTORY: Positive Hospitalization, Developmental Delay and Chicken Pox; Negative Autoimmune Disease, Down Syndrome, Autism, Shingles, Falls, Blood Transfusions, Blood Transfusion Reaction, Anesthesia Reactions, Organ Transplant, Chemotherapy, Radiation Therapy, Hyperbaric Therapy, MRSA, VRSA, Vancomycin-Resistant Enterococci, Human Immunodeficiency Virus (HIV), Measles, Mumps, Rubella (Slovenian Measles), Pertussis, Clostridium Difficile, Cancer, Breast Cancer, Cervical Cancer, Colorectal Cancer, Lung Cancer, Ovarian Cancer, Prostate Cancer or Testicular Cancer Family History FAMILY HISTORY: Positive Family Cardiac Disorders; Negative Family Psychiatric Problems, Family Respiratory Disorders, Family Gastrointestinal Problems, Family Cancer, Family Surgery or Family Anesthesia Reaction Surgical History SURGICAL: Positive Section; Negative Cardiac Surgery, Open Heart Surgery, Coronary Artery Bypass Graft, Valve Replacement, Vascular Surgery, Coronary Stent, Cardiac Catheterization, Pacemaker, Angiogram, Auto Implanted Cardiovert Defib, Carotid Endarterectomy, Endocrine Surgery, Thyroidectomy, Ear Surgery, Tympanostomy Tube, Eye Surgery, Nose Surgery, Oral Surgery, Tonsillectomy, Adenoidectomy, Cochlear Implant, Corneal Transplant, Throat Surgery, Abdominal Surgery, Tracheostomy, Gastric Bypass Surgery, Gastrostomy, Bowel Surgery, Nephrectomy, Transurethral Resection, Joint Replacement, Amputation, Open Reduction Internal Fixation, Arthroscopy, Neurologic Surgery, Brain Shunt, Mastectomy, Lumpectomy, Hysterectomy, Tubal Ligation (requests one during this admission stay), Vasectomy or Organ Transplant Social History SMOKING STATUS: Never smoker ED Exam Narrative Physical exam: Patient appeared mild to moderately toxic at time of evaluation. General Limitations: Present no limitations General appearance: Present alert Head Head exam: Present atraumatic Eye Eye exam: Present normal appearance, PERRL and EOMI ENT ENT exam: Present other (Patient reveals rhinorrhea and glassy eyes. Patient was coughing during evaluation.) Neck Neck exam: Present normal inspection, full ROM and trachea midline Chest Chest inspection: Present normal inspection and symmetric chest wall rise Respiratory Respiratory exam: Present normal lung sounds bilaterally and other (Unremarkable auscultation of bilateral lung alvarado.) Cardiovascular Cardiovascular exam: Present regular rate, normal rhythm and normal heart sounds Abdominal Exam Abdominal exam: Present soft and normal bowel sounds Extremities Exam Extremities exam: Present normal inspection and full ROM Back Exam Back exam: Present normal inspection and full ROM Neurological Exam Neurological exam: Present alert, oriented X3 and CN II-XII intact Psychiatric Psychiatric exam: Present normal affect and normal mood Skin Skin exam: Present warm, dry, intact and normal color Course Quality Measures none Orders Category Date Time Status XR chest 1V portable Stat Exams 09/17/25 20:00 Completed Albuterol/Ipratr Rt Gely [Duoneb Rt Gely] Med 09/17/25 20:00 Discontinued 3 ml INH X1 ONE dexAMETHasone INJ [Decadron Inj] Med 09/17/25 20:00 Discontinued 10 mg IM X1 ONE As noted above Vital Signs Vital signs: Vital Signs Temperature 98.4 F 09/17/25 19:54 Pulse Rate 87 09/17/25 19:54 Respiratory Rate 20 09/17/25 19:54 Blood Pressure 162/96 H 09/17/25 19:54 Pulse Oximetry (%) 95 09/17/25 19:54 Oxygen Delivery Method Room Air 09/17/25 19:54 As noted above Discharge Plan Plan Patient Disposition: HOME (Self Care) Prescriptions/Referrals Prescriptions/Med Rec: New benzonatate 100 mg capsule 100 mg PO TID PRN (Reason: cough) Qty: 20 0RF No Action PNV no.95-ferrous fumarate-FA [] 28 mg iron- 800 mcg Tablet 1 tab PO QDAY cetirizine 10 mg tablet 10 mg PO PRN PRN (Reason: ALLERGIES SEASONAL) Patient Comments: TAKE 1 TABLET BY MOUTH EVERY DAY NEEDED folic acid 1 mg tablet 1 mg PO QDAY Patient Comments: TAKE 1 TABLET BY MOUTH EVERY DAY epinephrine 0.3 mg/0.3 mL auto-injector 1 mg SUBCUT PRN PRN (Reason: Allergic Reaction) Patient Comments: INJECT 1 PEN INTRAMUSCULARLY ONCE NEEDED FOR ANAPHYLAXIS ursodiol 300 mg Capsule 300 mg PO TID aspirin 81 mg tablet,delayed release (DR/EC) Patient Comments: TAKE 1 TABLET BY MOUTH EVERY DAY acetaminophen-codeine 300-30 mg tablet 1 tab PO BID PRN (Reason: pain) Qty: 20 0RF ibuprofen 800 mg tablet 800 mg PO Q8H PRN (Reason: pain) Qty: 20 0RF ferrous sulfate [Feosol] 325 mg (65 mg iron) tablet 325 mg PO TID Qty: 60 3RF Problem List Clinical Impression: Viral upper respiratory illness Patient/Caregiver Discharge Instructions Education Materials: ED URI, Viral, No Abx (Adult) Additional Instructions: Advised patient denies medication as needed for symptomatic relief as well as good hydration and healthy nutrition. Print Language: American Stand Alone Forms: Felicia Award Info., Work/School Release, Patient Portal Info Letter MDM Narrative MDM hospital course (for use when minimal MDM required): All studies performed in the ED were evaluated by me personally. Imaging studies were unremarkable for any consolidation or intrapulmonary concerns. Patient appears to be suffering from a viral upper respiratory illness and not pneumonia. Advised patient utilize medication as needed for symptomatic relief as well as good hydration and healthy nutrition. Clinical Information Provided by: patient Medical Records reviewed None Meds/Rx considered, not ordered None Labs/Rad/Tests considered, not ordered None Chronic Illness/Social Conditions which may negatively complicate care or outcome(s)-explain: None or not applicable Explain: None EKG EKG not done Labs Labs: none Imaging Imaging interpretation: interpreted by me Imaging Interpretation(s): Viral upper respiratory illness Medication Administration(s) Medication Administration History Discontinued Medications Albuterol/Ipratropium (Albuterol/Ipratropium (Duoneb) Rt Gely 3 Ml Nebu) 3 ml INH X1 ONE Stop: 09/17/25 20:01 Last Admin: 09/17/25 20:59 Dose: 3 ml Documented By: PAR Dexamethasone Sodium Phosphate (Dexamethasone Sod Phos Inj 10 Mg/Ml Vial) 10 mg IM X1 ONE Stop: 09/17/25 20:01 Last Admin: 09/17/25 20:19 Dose: 10 mg Documented By: As noted above Diagnosis Differential Diagnosis ED Complaint MDM: Viral upper respiratory illness
== END 2025-09-17 21:36 | disposition home or self-care (01) ==
PROVIDERS: Emergency Provider Physician Assistant; PCP Nurse Practitioner Family
DX: B97.89 Other viral agents as the cause of diseases classified elsewhere (principal); J06.9 Acute upper respiratory infection, unspecified
CPT/HCPCS: 71045; 94640; 96372; 99283; A9270; J1100